=== PATIENT | female | born 1995 | race Two or more races ===

== ENCOUNTER 2018-05-29 00:12 | Emergency (ER) | payer SELFPAY ==
[~2018-05-29] VITALS: Ht 165.1 cm; Wt 63.7 kg
[2018-05-29] MEDS ORDERED: HYDROcodone/APAP 5/325 TABLET PO ONE (01:00)
[2018-05-29 01:02] LABS: MICROSCOPIC NOT IND
[2018-05-29 01:10] LABS: CULTURE INDICATED? NO
[2018-05-29 01:13] LABS: BASOPHILS # (AUTO) 0.07 x10^3/uL (0-0.1); BASOPHILS % (AUTO) 1 % (0-1); EOSINOPHILS # (AUTO) 0.19 x10^3/uL (0-0.4); EOSINOPHILS % (AUTO) 1 % (1-7); LYMPHOCYTES % (AUTO) 21 % (22-44); MD NO; MEAN CORPUSCULAR HEMOGLOBIN 32.3 pg (27.0-34.8); MEAN CORPUSCULAR HGB CONC 34.7 g/dL (32.4-35.8); MEAN CORPUSCULAR VOLUME 93.2 fL (80-100); MEAN PLATELET VOLUME 9.9 fL (7.4-10.4); MONOCYTES # (AUTO) 1.35 x10^3/uL (0.2-0.8); MONOCYTES % (AUTO) 9 % (2-9); NEUTROPHILS # (AUTO) 10.32 x10^3/uL (1.8-6.8); NEUTROPHILS % (AUTO) 69 % (42-75); PLATELET COUNT 223 x10^3/uL (130-400); RED BLOOD COUNT 3.99 x10^6/uL (3.82-5.3); RED CELL DISTRIBUTION WIDTH 12.9 % (9.6-15.2)
[2018-05-29 01:19] LABS: ALANINE AMINOTRANSFERASE 15 U/L (12-78); ALBUMIN 2.8 g/dL (3.4-5.0); ANION GAP 10 mmol/L (5-15); CALCIUM 8.5 mg/dL (8.5-10.1); CHLORIDE 103 mmol/L (98-107); CREATININE 0.62 mg/dL (0.55-1.02)
[2018-05-29 01:21] LABS: ALKALINE PHOSPHATASE 96 U/L (45-117); BILIRUBIN,TOTAL 0.2 mg/dL (0.2-1.0)
[2018-05-29] MEDS ORDERED: HYDROcodone/APAP 5/325 TABLET ONE (01:23)
[2018-05-29] MEDS ORDERED: morphine SULFATE 10 MG/ML, 1ML IVPush ONE (01:30)
[2018-05-29] MEDS ORDERED: ONDANSETRON 2MG/ML, 2ML IVPush ONE (01:30)
--- NOTE | 2018-05-29 01:30 | NUR ---
MRI SCREENING FORM COMPLETED AND FAXED TO [facility]
--- NOTE | 2018-05-29 01:46 | NUR ---
PT REFUSING MORPHINE/IV AT THIS TIME. PT EDUCATED ON RISKS AND BENEFITS OF PAIN MEDICATION. PT STILL REFUSING. PA AWARE.
--- NOTE | 2018-05-29 02:25 | NUR ---
NO IMMEDIATE NEEDS FROM PT. NADN. STATES PAIN "A LITTLE BETTER" AFTER NORCO. AWARE. AWAITING MRI.
--- NOTE | 2018-05-29 02:32 | NUR ---
PT PRESENTED TO TRIAGE STATING 19 WEEKS . US RESULTS INDICATE PT 23 WEEKS. THIS RN SAW RESULTS AND IMMEDIATELY CALLED L&D AFTER SEEING RESULTS. L&D NURSE COREY GALVEZ INFORMED THIS RN TO SEND PT UP TO L&D IMMEDIATELY. "WHY DIDNT YOU CALL US SOONER? THE PROTOCOL STATES ANYONE OVER 20 WEEKS." AND THAT THE PT SHOULD NOT HAVE AN MRI "I CANT BELIEVE YOU GUYS WOULD DO AN MRI ON A PT. DONT YOU KNOW THAT IS DANGEROUS?" MD IN ED NOTIFIED AND MD INDICATES NEED FOR MRI TO RULE OUT APPENDICITIS AND "DANGER TO MOTHER AND BABY IF +APPENDICITIS GOES UNDIAGNOSED." MD TO CONTACT [facility] CUTTER OB. BLUE LEATHER SORTER RAFI DOMINGUEZ AWARE OF SITUATION.
--- NOTE | 2018-05-29 02:53 | NUR ---
PT IN MRI.
[2018-05-29 03:22] VITALS: BP 118/72
--- NOTE | 2018-05-29 03:22 | NUR ---
PT BACK FROM MRI. PT AND FAMILY UPDATED ON POC. VSS. CALL LIGHT WTIHIN REACH. NO IMMEDIATE NEEDS. AWAITING MRI RESULTS. PT FAMILY OFFERED CUT OFF SAW OPERATOR METAL AGAIN AT THIS TIME. FAMILY REFUSES.
--- NOTE | 2018-05-29 03:43 | NUR ---
MRI RESULTS BACK AND SPOKE TO OB CONDUIT HELPER. STATES OB SAYS ITS OK FOR PT TO GO HOME W/O GOING TO L&D.
== END 2018-05-29 04:02 | disposition home or self-care (01) ==
LOC: ED 03:56
DX: O26.892 Other specified pregnancy related conditions, second trimester (principal); R10.31 Right lower quadrant pain; Z3A.23 23 weeks gestation of pregnancy
CPT/HCPCS: 36415; 74181; 76815; 80053; 81003; 83690; 85025; 99284